=== PATIENT | male | born 1990 | race African-American/Black ===

== ENCOUNTER 2022-10-08 10:46 | Emergency (ER) | payer SELFPAY ==
[~2022-10-08] VITALS: Ht 180.3 cm; Wt 104.3 kg
[2022-10-08 10:52] VITALS: BP_SYST 90
--- NOTE | 2022-10-08 11:01 | NUR ---
Placed in room 08 . Placed on telemetry monitor, blood pressure machine and pulse oximeter. To gown for exam. Side rails up. Report given to VASQUEZ SCHULZ.
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
--- NOTE | 2022-10-08 11:15 | NUR ---
ER at bedside examining patient.
[2022-10-08] MEDS ORDERED: NACL 0.9% 1,000 ML IV ONE (11:45)
--- NOTE | 2022-10-08 12:14 | NUR ---
Take to radiology via gurney.
[2022-10-08] MEDS ORDERED: KETAMINE HCL IN 0.9 % NACL 50 MG/5 ML SYRINGE ONE (13:41)
[2022-10-08] MEDS ORDERED: KETAMINE HCL 500 MG/10 ML VIAL IVP ONE (13:45)
--- NOTE | 2022-10-08 13:45 | NUR ---
Consent obtained for closed reduction of right ankle. Moderate sedation coordinated by IRWIN Cook and MD Giordano.
[2022-10-08] MEDS ORDERED: MORPHINE 4 MG INJ. 4 MG/ML VIAL IVP ONE (16:30)
--- NOTE | 2022-10-08 17:40 | NUR ---
AT THE BEDSIDE FOR CLOSED REDUCTION WITH DR. DESOUZA. RT ALSO AT THE BEDSIDE
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
[2022-10-08] MEDS ORDERED: HYDROcodone/ACETAMIN 5-325 MG TAB (NORCO/ VICODIN) PO ONE (18:15)
[2022-10-08] MEDS ORDERED: ACET-2634 PO (18:15)
[2022-10-08] MEDS ORDERED: IBUP-1971 PO (18:15)
--- NOTE | 2022-10-08 18:35 | NUR ---
Patient given written and verbal discharge instructions and verbalizes understanding. ER MD discussed with patient the results and treatment provided. Patient in stable condition. ID arm band removed. Rx of ibuprofen and tylenol given. Patient educated on pain management and to follow up with PMD. Opportunity for questions provided and answered. Medication side effect fact sheet provided.
[2022-10-08 18:36] VITALS: BP_SYST 113
== END 2022-10-08 18:36 | disposition home or self-care (01) ==
LOC: SED 10:46
DX: S93.04XA Dislocation of right ankle joint, initial encounter (principal); S82.491A Other fracture of shaft of right fibula, initial encounter for closed fracture; S02.85XA Fracture of orbit, unspecified, initial encounter for closed fracture; Z79.899 Other long term (current) drug therapy; Y04.0XXA Assault by unarmed brawl or fight, initial encounter; Y93.89 Activity, other specified; Y92.89 Other specified places as the place of occurrence of the external cause; Y99.8 Other external cause status
CPT/HCPCS: 99285; 70450; 27840; 96374; 96361; 73610; 70486; 72125; 99152; 76376; J2270; J7030